=== PATIENT | female | born 1985 | race Caucasian/White ===

== ENCOUNTER → 2025-04-05 08:46 | Outpatient (CLI) | payer OTHER, SELFPAY ==
--- NOTE | 2025-04-05 08:48 | DI.MG.S_ITS ---
MM diagnostic mammo unilat RT, US breast RT limited: 04/05/2025 BI-RADS: 2 CLINICAL: 40-year old female for right diagnostic mammogram and right diagnostic breast ultrasound that is a recall from screening on 02/06/2025. Tyrer-Cuzick lifetime risk of 20.7%. No personal or first-degree family history of breast cancer. Current reported family history of breast cancer: paternal aunt. PRIOR EXAMS Mammogram(s): 02/06/2025. MAMMOGRAPHY TECHNIQUE: 2D and 3D (tomosynthesis) digital mammographic views obtained, with additional images as needed for full coverage. Current study was also evaluated with a Computer Aided Detection (CAD) system. ULTRASOUND TECHNIQUE Real-time alexander scale and color doppler imaging of the area of clinical interest was performed with image documentation. DENSITY Right: B. There are scattered areas of fibroglandular density. MAMMOGRAPHY FINDINGS Right: Lower Inner Quadrant: The finding seen on recent screening mammogram did not persist with additional imaging and is consistent with superimposition of normal breast tissue. No suspicious mass, asymmetry, microcalcification, or other abnormality seen. ULTRASOUND FINDINGS Right: Lower Outer at 7:00, 6 cm from nipple: Incidentally noted area of heterogenous fibroglandular tissue. Finding is benign. No suspicious sonographic finding with typically benign findings noted. Right: Lower Inner at 4:00, 7 cm from nipple: Confirmatory negative ultrasound demonstrates no sonographic abnormality consistent with superimposition of normal fibroglandular tissue. IMPRESSION: Right * No evidence of malignancy with benign findings. RECOMMENDATIONS Bilateral * According to the Tyrer-Cuzick Risk Assessment Model, based on the information provided your patient has a greater than 20% lifetime risk for developing breast cancer. Consider supplemental screening with breast MRI and participation in a high risk screening program. * Annual screening mammography. COMMENTS: Findings and recommendations were conveyed to the patient during today's evaluation. OVERALL ASSESSMENT CATEGORY BI-RADS-2: Benign. [employer] recommends annual screening mammography beginning at age 40 for women with average risk of breast cancer. ELECTRONICALLY SIGNED: Ruby Aguilar M.D. on 04/05/2025 at 04:12:37 PM PT Interpreting Station ID: [id number]
== END ==
DX: R92.8 Other abnormal and inconclusive findings on diagnostic imaging of breast (principal); R92.331 Mammographic heterogeneous density, right breast; Z80.3 Family history of malignant neoplasm of breast
CPT/HCPCS: 76642; 77065; G0279